=== PATIENT | male | born 2005 | race Caucasian/White ===

== ENCOUNTER 2024-10-31 06:39 | Day surgery (SDC) | payer BC, SELFPAY ==
[2024-10-31] VITALS (9 sets, daily range): BP systolic 91–143; BP diastolic 41–85; BMI 26.6
[2024-10-31] MEDS: TYLENOL 1000 MG PO (08:22)
[2024-10-31] MEDS: NORMOSOL-R/PLASMALYTE-A 1000 IV (08:25)
== END 2024-10-31 12:20 | disposition home or self-care (01) ==
LOC: SDS 06:39
PROVIDERS: ATTENDING PHYSICIAN Surgery
DX: L05.91 Pilonidal cyst without abscess (principal)
CPT/HCPCS: 11771; 88304